=== PATIENT | female | born 1985 | race Caucasian/White ===

== ENCOUNTER 2017-08-26 04:48 | Inpatient (IN) | payer OTHER ==
[~2017-08-26] VITALS: Ht 165.1 cm; Wt 73.9 kg
[~2017-08-26 04:48] MED LIST: ACET-1718 PO; CALC300T5 PO; EST5I IM; IBUP800T37 PO; PREN-119 PO; ZOLM5 PO
[2017-08-26] MEDS ORDERED: FAMOTIDINE(*) 20MG/50ML PREMIX 50 ML IVPB PRN (04:58)
[2017-08-26] MEDS ORDERED: ceFAZolin(*) 2GM/D5W 50ML 50 ML IVPB PRN ×2 (04:58→09:29)
[2017-08-26] MEDS ORDERED: OXYTOCIN 30 UNIT/D5LR 500 ML 500 ML IV PRN (04:58)
[2017-08-26] MEDS ORDERED: MISOPROSTOL 25 MCG CAP PV ONE (05:00)
[2017-08-26] MEDS ORDERED: fentaNYL CITR 100 MCG/2 ML AMP IVP PRN (05:00)
[2017-08-26] MEDS ORDERED: FLUSH 10 ML SYR IVP PRN (05:00)
[2017-08-26] MEDS ORDERED: METOCLOPRAMIDE 10 MG/2 ML SDV IVP PRN (05:00)
[2017-08-26] MEDS ORDERED: LIDOCAINE 1% LOCAL 300 MG/30ML INJ PRN (05:00)
[2017-08-26] MEDS ORDERED: TERBUTALINE SULF 1 MG/ML VIAL SUBQ PRN (05:00)
[2017-08-26] MEDS ORDERED: LIDOCAINE/SOD BICARB 8.4% SYR SC PRN (05:00)
[2017-08-26 05:01] VITALS: BP 153/78; Ht 165.1 cm; Wt 73.9 kg
[2017-08-26] MEDS: LR(*) 1000 ML BAG 1,000 ML IV PRN ×2 (06:00→15:23)
[2017-08-26 06:42] LABS: PLATELET COUNT, AUTOMATED 173 K/uL (150-450)
--- NOTE | 2017-08-26 07:58 | History & Physical ---
History of Present Illness EDC per LMP: Aug 26, 2017 Estimated Gestational Age: 40 Chief Complaint Induction History of Present Illness 31yo at 40w0d presents for IOL at term. No concern today. Occasional UCx. No VB/LOF. +FM. No preeclampsia symptoms. PNR reviewed. uncomplicated. GBS negative. PNC at [facility]. History Patient's Blood Type: O Positive Rubella Status: Immune Group B Strep Screen: Negative Obstetrical History: G1: 39wk FAVD G2: SAB G3: SAB G4: Current Past Medical History: PMH: Asthma (as a child) PSH: Appy, bladder repair, right knee surgery Allergies: Coded Allergies: Penicillins (Verified Allergy, Mild, 11/11/11) Social History: No T/E/D. . Family History: FH: arthritis Family member FH: diabetes mellitus Family member FH: hypertension Family member FH: leukemia Family member FHx: congenital heart disease Family member Med Rec Home Meds Reported Medications Vit/Iron Fumarate/Fa ( VITAMIN TABLET) 1 Each Tablet, 1 EACH PO DAILY 05/04/15 Review of Systems Constitutional: No Fever Eyes: No Vision Change Cardiovascular: No Chest Pain Respiratory: No Shortness of Breath, No Cough Gastrointestinal: No Nausea, No Vomiting, No Diarrhea Genitourinary: No Dysuria Musculoskeletal: No Pain Psychiatric: No Depression, No Anxiety Exam General Exam Vital Signs Vital Signs Date Time Temp Pulse Resp B/P (MAP) Pulse Ox O2 Delivery O2 Flow Rate FiO2 08/26/17 05:01 98.8 65 18 153/78 (103) 98 General Apperance: Alert/Awake/No Acute Distress Neuro: No Gross deficits Eyes: Normal Extraocular Movement & Vison Cardiovascular: Regular Rate and Rhythm Respiratory: No Respiratory Distress Abdomen: Gravid - Non-Tender : Normal Musculoskeletal: No Weakness/Pain Extremities: No Cyanosis,Clubbing or Edema Integumentary: Skin Intact without Lesions or Rash Psychological: Alert & Oriented X3, Appropriate Mood & Affect Cervical Dialation: 2 Cervical Effacement (%): 75 Cervical Consistency: Moderate Cervical Position: Mid Station: -1 Presentation: Vertex Uterine Contractions(Q min): 10 Uterine Contraction Strength: Mild UC Resting Tone: Soft Fetus Feeling Movement?: Yes FHT Category: I Medical Decision Making Data Points Result Diagram: 08/26/17 0550 Pre-Admit Course Medical Record Review: Yes VTE Prophylasis: Adult Deep Vein Thrombosis/Pulmonary: No Pharmacological Contraindicati: Pt at Low Risk for VTE Mechanical Contraindications: Pt at Low Risk for VTE Assessment and Plan Problems: (1) 40 weeks gestation of Assessment & Plan: 31yo at 40wks presents for IOL. Cytotec x 1 administered for ripening. Will start pitocin at 10:15am. Answered questions. RAMANA AGUSTIN MD Aug 26, 2017 07:58
[2017-08-26] MEDS ORDERED: BUPIVACAINE 0.25% MPF INJ EPI PRN (09:35)
[2017-08-26] MEDS ORDERED: BUPIVACAINE 0.5% INJ 30ML VIAL EPI PRN (09:35)
[2017-08-26] MEDS ORDERED: ePHEDrine 25 MG/5 ML DISP.SYR IVP PRN (09:35)
[2017-08-26] MEDS ORDERED: LIDO/EPI 2% MPF 1:200,000 20ML EPI PRN (09:35)
[2017-08-26] MEDS ORDERED: LIDOCAINE/PF 2% 200MG/10ML AMP 200 MG/10 ML AMPUL EPI PRN (09:35)
[2017-08-26] MEDS ORDERED: FENTANYL/ROPIVACAINE 100 ML BAG EPI PRN (09:35)
[2017-08-26] MEDS ORDERED: fentaNYL CITR 100 MCG/2 ML AMP IT PRN (09:35)
[2017-08-26] MEDS ORDERED: EPIDURAL KEYS XX PRN (12:00)
--- NOTE | 2017-08-26 12:31 | Labor Progress Note ---
Labor Subjective Progress Notes Subjective Pt feeling well. No concerns. Feeling more pressure and pain with contractions. Labor Objective Vital Signs Vital Signs Date Time Temp Pulse Resp B/P (MAP) Pulse Ox O2 Delivery O2 Flow Rate FiO2 08/26/17 05:01 98.8 65 18 153/78 (103) 98 Vaginal Discharge/Fluid?: Clear Fluid Cervical Dialation: 3 Cervical Effacement (%): 75 Cervical Consistency: Soft Cervical Position: Mid Station: -1 Presentation: Vertex Uterine Contractions(Q min): 3 Uterine Contraction Strength: Moderate UC Resting Tone: Soft Fetus FHT Category: I General Exam General Appearance: Alert/Awake/No Acute Distress Cardiovascular: Normal Rhythm & Peripheral Pulses, Regular Rate and Rhythm Respiratory: No Respiratory Distress, Clear to Auscultation Abdomen: Soft, Non-Tender, Non-Distended, Gravid - Non-Tender Extremities: No Cyanosis,Clubbing or Edema Integumentary: Skin Intact without Lesions or Rash Psychological: Alert & Oriented X3, Appropriate Mood & Affect Other Result Diagram: 08/26/17 0550 Assessment and Plan Problems: (1) 40 weeks gestation of Assessment & Plan: AROM with clear fluid. Continue pitocin. Anticipate . RAMANA AGUSTIN MD Aug 26, 2017 12:31
--- NOTE | 2017-08-26 17:27 | Anesthesia OB Pre-Anes Eval ---
History of Present Illness Anesthesia Start Date: Aug 26, 2017 Anesthesia Start Time: 15:40 OB Anesthesia Diagnosis: induction - elective Complications: None known EDC: Aug 26, 2017 : 4 Para: 1 Vital Signs: Vital Signs Date Time Temp Pulse Resp B/P (MAP) Pulse Ox O2 Delivery O2 Flow Rate FiO2 08/26/17 05:01 98.8 65 18 153/78 (103) 98 Pain Ratin Heart Tones: WNL Result Diagram: 08/26/17 0550 Height (Inches): 65.00 Weight (Pounds): 163 BMI Calculated: 27.12 Past Medical History Medical History: no pertinent history Surgical History: appendectomy, other (bladder and knee) Previous Anesthesia: general, epidural Attended Childbirth Classes?: No Hx Anesthesia Reactions: No Hx Family Anesthesia Reaction: No Current Medications: pitocin Home Meds Reported Medications Vit/Iron Fumarate/Fa ( VITAMIN TABLET) 1 Each Tablet, 1 EACH PO DAILY 05/04/15 Allergies: Coded Allergies: Penicillins (Verified Allergy, Mild, 11/11/11) Anesthesia OB ROS Neurological: No migraines/headaches, No seizures, No neuropathy Eyes ROS: other (wearing glasses) ENT: Denies Tooth caps, Denies Loose teeth, Denies Chipped teeth, Denies Dentures, Denies Bridges, Denies Retainers, Denies Veneers, Denies Implants, Denies Tongue ring Pulmonary: asthma (as a child) Airway Class: ll Cardiovascular ROS: No edema, No arrhythmia GI ROS: clear liquids Last Solids Date: Aug 25, 2017 Last Solids Time: 22:00 ROS: No Herpes, No STD(s), No Liver Disease, No Renal Disease Endocrine ROS: No diabetes, No gestational diabetes, No thyroid disorder Musculoskeletal ROS: No low back pain, No low back injury, No scoliosis ASA Classification: 2 Assessment and Plan Anesthesia Plan: CSE Assessment Past Medical, Surgical, Family and Obstetric Histories reviewed. Please see ACOG chart. Reviewed last epidural/anesthesia record. No problems noted. General anesthesia risks and benefits explained to patient's satisfaction. Questions invited, none asked. JORDON LEONARD CRNA Aug 26, 2017 17:27
--- NOTE | 2017-08-26 17:31 | Procedure Note ---
Anesthetic Placement Note Anesthesia Plan: CSE Permit for Anesthesia Signed: Yes Anesthesia Technique: Patient Sitting Anesthesia Prep: Chlorhexidine Interspace: L 3-4 Local Anesthetic: 1% Lidocaine, 25 Gauge Needle Amount Local - cc's: 2 Anesthesia Needle: 17g Touhy/Schliff Anesthesia Attempts: 1 Loss of Resistance: Air Depth of ALEXA (cm): 4 Epidural Needle Placement: No CSF, No Blood, No Parasthesia Intrathecal Needle: 27 Gauge Pencan Cerebral Spinal Fluid: Yes, Clear Catheter Insertion (cm): 6 Catheter Type: [place] - Spring Wound Epidural Dressing: Tegaderm, Tape, Adhesive [place] Anesthesia Tray: Lot Number ([id number]), Expiration Date (2018-03-02), Reference Number ([id number]) Anesthesia Medications: Intrathecal Dose: mcg Fentanyl (15), mg Marcaine MPF (1.75), Time (1552) Epidural Test Dose: 1.5 Lido/Epi (1:200,000), Dose - mL (2), Time (603), Negative Epidural Loading Dose: 0.2% Ropivicaine, With Fentanyl 2mcg/ml, Dose - ml (5), Time (1625) Epidural Infusion: 0.2% Ropivicaine, With Fentanyl 2mcg/ml, Start Time: (1625) Epidural Pump Setting: Bolus Dose - mL (5), Lockout - Minutes (20), Maintenance Rate - mL/hr, Maximum per Hour - mL (21) Complications: None Comment: Vital signs stable. Patient comfortable and condition stable. Mild itching noted. JORDON LEONARD CRNA Aug 26, 2017 17:31
--- NOTE | 2017-08-26 17:34 | Anesthesia Progress Note ---
Progress/Maintenance Anesthesia Note Date: Aug 26, 2017 Anesthesia Note Time: 17:25 Pain Intensity: 5 Pump: On Pump Rate (ML/HR): 6 Sensory Level: T-12 Motor Level: Bending Knees-Bilateral Dilatation: 10 Position: Left, Lateral Drug Bolus: 0.5% Marcaine (4), Other (Fentenyl 35 mcgs) Anesthesia Treatment: Fentenyl 50 mcgs given with test dose prior to starting epdiural pump. Assessment and Plan Assessment Pt. states she is feeling "pressure" and more on left than right side. Bolus given and will observe for improvement. JORDON LEONARD CRNA Aug 26, 2017 17:34
[2017-08-26] MEDS ORDERED: METHYLERGONOVINE MAL 0.2MG/ML ONE (18:20)
--- NOTE | 2017-08-26 18:22 | OB Delivery Note ---
Delivery Note Vaginal Delivery Type: Spont. Vaginal Delivery Delivery Date: Aug 26, 2017 Delivery Time: 17:43 Estimated Gestational Age(wks): 40 Delivery Anesthesia: Epidural Infant Sex: Female [place] Apgars: 1 Minute (8), 5 Minute (9) Delivery Complications: Retained Placenta Notes: Precipitous delivery of baby. Manual extraction of placenta after 30 minutes RAMANA AGUSTIN MD Aug 26, 2017 18:22
[2017-08-26] MEDS ORDERED: GLYCERIN/WITCH HAZEL LEAF 1 PK TP PRN (18:25)
[2017-08-26] MEDS ORDERED: BENZOCAINE 20% 60 ML BTL TP PRN (18:25)
[2017-08-26] MEDS ORDERED: MAGNESIUM HYDROXIDE* 30ML UDCP PO PRN (18:25)
[2017-08-26] MEDS ORDERED: LANOLIN OINT 7 GM TUBE TP PRN (18:25)
[2017-08-26] MEDS ORDERED: APAP/HYDROCODONE 325/5 TAB PO PRN (18:25)
[2017-08-26] MEDS ORDERED: METHYLERGONOVINE MAL 0.2MG/ML IM ONE (18:25)
[2017-08-26] MEDS ORDERED: HYDROCORTISONE 2.5% CR 30GM TB PR PRN (18:25)
[2017-08-26] MEDS ORDERED: ACETAMINOPHEN 325 MG TAB PO PRN (18:25)
--- NOTE | 2017-08-26 18:28 | Anesthesia Progress Note ---
Progress/Maintenance Anesthesia Note Date: Aug 26, 2017 Anesthesia Note Time: 18:15 Pain Intensity: 0 Pump: Off Sensory Level: T-12 Motor Level: Other (Both legs heavy) Dilatation: 10 Position: Semi-Fowlers Drug Bolus: 0.5% Marcaine (5 ml) Assessment and Plan Assessment Excellent tolerance of delivery. Additional 0.5% Marcaine plain given for manual removal of placenta. Empty syringe attached to epidural catheter and RN agrees to remove in 2-3 hrs or with first ambulation. Patient instructed the first ambulation is to be with help of nursing staff. Instructed to preform deep knee bends at bedside before walking. Anesthesia Stop Day: Aug 26, 2017 Anesthesia Stop Time: 18:15 JORDON LEONARD CRNA Aug 26, 2017 18:28
[2017-08-26] MEDS ORDERED: ONDANSETRON 4 MG/2 ML VIAL ONE (18:56)
[2017-08-26] MEDS ORDERED: ONDANSETRON 4 MG/2 ML VIAL IVP PRN (19:00)
[2017-08-26 19:14] VITALS: BP 107/51
[2017-08-26] MEDS ORDERED: ceFAZolin(*) 2GM/D5W 50ML 50 ML IVPB ONE (19:17)
[2017-08-26] MEDS: IBUPROFEN 800 MG TAB PO SCH (19:36)
[2017-08-26 20:07] VITALS: BP 117/54
[2017-08-26] MEDS ORDERED: IBUP800T37 PO (21:18)
[2017-08-26] MEDS ORDERED: LOR5/325 PO (21:19)
[2017-08-26] MEDS: DOCUSATE CALCIUM 240 MG CAP PO SCH (21:41)
[2017-08-26 22:40] VITALS: BP 105/53
--- NOTE | 2017-08-27 00:28 | DELIVERY NOTE ---
DELIVERY DATE: August 26, 2017 SURGEON: Shalonda Newman MD ANESTHESIA: Epidural. ANESTHESIOLOGIST: Amena Cortes CRNA PREOPERATIVE DIAGNOSIS Intrauterine at 40 weeks zero days, presenting for elective induction of labor. POSTOPERATIVE DIAGNOSES 1. Intrauterine at 40 weeks zero days, presenting for elective induction of labor. 2. Precipitous delivery of a viable female at 1743 hours, weighing 3170 g, with Apgars of 8 at one minute and 9 at five minutes. 3. Retained placenta. PROCEDURES PERFORMED 1. Precipitous spontaneous vaginal delivery. 2. Manual extraction of placenta. ESTIMATED BLOOD LOSS 100 mL INDICATIONS FOR PROCEDURE This patient is a 31-year-old, 4, para 1-0-2-1, who presented at 40 weeks' gestation for elective induction of labor. At the time of presentation, she was 2, 75, and -3. She, therefore, received one dose of vaginal Cytotec 25 mcg. After four hours, she was initiated on Pitocin per protocol. She then experienced artificial rupture of membranes at 1237 hours, at which time she was 3, 75, and -1 station. She then was able to progress and was noted to be complete at 1715 hours and feeling the urge to push. She was allowed to push, bringing the infant's vertex to the perineum. DESCRIPTION OF PROCEDURE The patient was pushing and brought the infant's vertex to the perineum. At that time, I was called for delivery; however, the patient was unable to wait until I arrived. Therefore, the nurse, Debi, delivered the in the bed. She reports a nuchal cord which was delivered through and then relieved. She then was able to pass the infant to the mother's abdomen and cleared the oropharynx and nasopharynx with a bulb suction. I arrived three minutes after delivery, at which time the baby was crying and sitting on the mother's abdomen. The patient had excellent pain control. At this time, I was able to evaluate her perineum, which revealed no lacerations. The cord was clamped times two and cut. Cord blood was then obtained and passed off the table. Pitocin was started in the IV fluid to help firm the uterus. Fundal massage was applied as well as gentle cord traction; however, the placenta was not ready to be . After 30 minutes of waiting for the placenta to separate, there were still no signs of placental separation. Therefore, she was consented for manual extraction of the placenta. Ancef 2 g was administered intravenously, and her epidural was dosed up for better pain control. I was then able to manually extract the placenta, which was extremely adherent to the anterior aspect of the uterus. It did come out in multiple pieces. After multiple passes, it felt as if all the placenta had been removed. There was minimal vaginal bleeding during this entire procedure. The patient was administered Methergine and will continue this for 24 hours to help slough any remaining products of conception. The patient tolerated this procedure well and was able to recover in Labor and Delivery with her infant. All sponge and needle counts were correct at the end of this procedure. MTDD
[2017-08-27] MEDS: METHYLERGONOVINE MAL 0.2MG TAB PO SCH ×3 (00:56→12:37)
[2017-08-27] MEDS: IBUPROFEN 800 MG TAB PO SCH ×3 (03:09→19:09)
[2017-08-27 03:11] VITALS: BP 117/55
--- NOTE | 2017-08-27 07:10 | OB/GYN Progress Note ---
OB Subjective Progress Notes Subjective Doing well. Pain controlled with oral medications. Tolerating regular diet. Ambulating. Voiding. Normal lochia. No preeclampsia symptoms. OB Objective Physical Exam Vital Signs Date Time Temp Pulse Resp B/P (MAP) Pulse Ox O2 Delivery O2 Flow Rate FiO2 08/27/17 03:11 98.4 49 16 117/55 (75) 94 Room Air General Appearance: Alert/Awake/No Acute Distress Neurological: No Gross deficits Eyes: Normal Extraocular Movement & Vison Cardiovascular: Normal Rhythm & Peripheral Pulses, Regular Rate and Rhythm Respiratory: No Respiratory Distress, Clear to Auscultation Abdomen: Soft, Non-Tender, Non-Distended, Fundus Firm Extremities: No Cyanosis,Clubbing or Edema Integumentary: Skin Intact without Lesions or Rash Psychological: Alert & Oriented X3, Appropriate Mood & Affect Result Diagram: 08/26/17 0550 Assessment and Plan Problems: (1) care and examination immediately after delivery Assessment & Plan: PPD#2. Meeting milestones. Desires discharge to home tomorrow. Discussed routine expectations. Questions answered. Follow up in clinic in 6wks for check. RAMANA AGUSTIN MD Aug 27, 2017 07:10
[2017-08-27 09:10] VITALS: BP 112/56
[2017-08-27] MEDS: DOCUSATE CALCIUM 240 MG CAP PO SCH ×2 (09:12→20:50)
--- NOTE | 2017-08-27 12:06 | Anesthesia Post Eval Note ---
Anesthesia Post Eval Note Vital Signs Date Time Temp Pulse Resp B/P (MAP) Pulse Ox O2 Delivery O2 Flow Rate FiO2 08/27/17 09:10 98.2 54 16 112/56 (74) 94 Room Air Pt able to participate in Eval: Yes Cardiovascular Status: Satisfactory Respiratory Status: Satisfactory Pain Managment: Satisfactory PO Nausea/Vomiting: Satisfactory Temperature Management: Satisfactory Mental Status: Satisfactory, Alert, Oriented X3 Post-Op Hydration Status: Satisfactory, Tolerating PO Well, Voiding w/o Difficulty Anesthesia Type: CSE Anesthesia Tolerance: Tolerated procedure well without apparent anesthetic complications. LP site clear, no redness or edema. Denies headache or any residual paresthesia. Vital Signs Stable, Patient comfortable and condition stable. JORDON LEONARD CRNA Aug 27, 2017 12:06
[2017-08-27 12:30] VITALS: BP 116/62
[2017-08-27] MEDS ORDERED: INFLUENZA VIRUS VAC 0.5 ML SYR IM ONLY ONE (18:25)
[2017-08-27] MEDS ORDERED: DIPHTH/TETANUS/ACEL. PERTUSSIS IM ONLY ONE (18:25)
[2017-08-27] MEDS ORDERED: MEASLES,MUMP,RUBELLA VAC 0.5ML SUBQ ONE (18:25)
[2017-08-27 21:00] VITALS: BP 117/64
[2017-08-28] MEDS: IBUPROFEN 800 MG TAB PO SCH ×2 (03:00→10:30)
--- NOTE | 2017-08-28 07:55 | OB/GYN Progress Note ---
OB Subjective Progress Notes Subjective Pain controlled, Tolerating diet and activity. Baby . Normal lochia. GI: POS Flatus, NEG Nausea, NEG Vomiting : Voiding Well Pain: Mild OB Objective Physical Exam Vital Signs Date Time Temp Pulse Resp B/P (MAP) Pulse Ox O2 Delivery O2 Flow Rate FiO2 08/27/17 21:00 Room Air 08/27/17 21:00 98.6 52 20 117/64 (81) 08/27/17 12:30 96 General Appearance: Alert/Awake/No Acute Distress Neurological: No Gross deficits Eyes: Normal Extraocular Movement & Vison Cardiovascular: Normal Rhythm & Peripheral Pulses, Regular Rate and Rhythm Respiratory: No Respiratory Distress, Clear to Auscultation Abdomen: Soft, Non-Tender, Non-Distended, Fundus Firm Extremities: No Cyanosis,Clubbing or Edema, No Edema Integumentary: Skin Intact without Lesions or Rash Psychological: Alert & Oriented X3, Appropriate Mood & Affect Result Diagram: 08/26/17 0550 Assessment and Plan Problems: (1) care following vaginal delivery Assessment & Plan: Pain controlled, Tolerating diet and activity. Baby . Normal lochia. ELANA MORA MD Aug 28, 2017 07:55
[2017-08-28 08:30] VITALS: BP 120/67
[2017-08-28] MEDS: DOCUSATE CALCIUM 240 MG CAP PO SCH (09:24)
== END 2017-08-28 10:55 | disposition home or self-care (01) | DRG 767 ==
LOC: OB 04:48
PROVIDERS: ADMIT Obstetrics & Gynecology; ATTEND Obstetrics & Gynecology
PROC: 10E0XZZ Delivery of Products of Conception, External Approach (ICD-10-PCS; principal; 2017-08-26)
PROC: 10D17Z9 Manual Extraction of Products of Conception, Retained, Via Natural or Artificial Opening (ICD-10-PCS; 2017-08-26)
PROC: 10907ZC Drainage of Amniotic Fluid, Therapeutic from Products of Conception, Via Natural or Artificial Opening (ICD-10-PCS; 2017-08-26)
DX: O62.3 Precipitate labor (principal); O69.81X0 Labor and delivery complicated by cord around neck, without compression, not applicable or unspecified; O73.0 Retained placenta without hemorrhage; Z37.0 Single live birth; Z88.0 Allergy status to penicillin; Z3A.40 40 weeks gestation of pregnancy
CPT/HCPCS: 85025; 86850; 86900; 86901; J0690; J2210; J2405; J2590; J3010; J7120; S0020

== ENCOUNTER → 2018-12-09 | Outpatient (CLI) | payer BC ==
[2017-08-26 05:01] VITALS: BMI 27.1
[~2018-12-09] MED LIST changes: +LOR5/325 PO
[2018-12-09 09:43] LABS: PLATELET COUNT, AUTOMATED 143 K/uL (150-450)
== END ==
LOC: LAB 08:04
PROVIDERS: ATTEND Obstetrics & Gynecology
DX: Z34.81 Encounter for supervision of other normal pregnancy, first trimester (principal)
CPT/HCPCS: 36415; 85025; 86592; 86703; 86762; 86850; 86900; 86901; 87340

== ENCOUNTER → 2018-12-13 | Outpatient (CLI) | payer BC ==
[2017-08-26 05:01] VITALS: BMI 27.1
[~2018-12-13] MED LIST changes: +MISO200T59 PO
== END ==
LOC: LAB 08:14
PROVIDERS: ATTEND Student in an Organized Health Care Education/Training Program
DX: Z02.9 Encounter for administrative examinations, unspecified (principal)